=== PATIENT | female | born 1975 | race Hispanic/Latino ===

== ENCOUNTER 2018-06-14 07:25 | Emergency (ER) | payer OTHER ==
[~2018-06-14] VITALS: Ht 162.6 cm; Wt 72.6 kg
[2018-06-14] MEDS ORDERED: HYDROCODONE/APAP 7.5MG-325MG 1 EA TAB PO ONE (08:00)
[2018-06-14] MEDS ORDERED: HYDROCODONE/APAP 7.5MG-325MG 1 EA TAB PO NR (08:00)
[2018-06-14] MEDS ORDERED: ONDANSETRON HCL 4 MG ORAL DISINTEGRATING TAB PO NR (08:00)
--- NOTE | 2018-06-14 09:03 | Diagnostic Imaging Report ---
EXAMINATION: CHEST 2 VIEWS INDICATION: Cough, weakness ^cough, cp ^[id number] ^[id number] COMPARISON: None FINDINGS: PA and lateral views TUBES and LINES: None. LUNGS: Bibasilar subsegmental atelectasis There is no evidence of pneumonia or pulmonary edema. PLEURA: No pleural effusion or pneumothorax. HEART AND MEDIASTINUM: The cardiomediastinal silhouette is unremarkable.. BONES AND SOFT TISSUES: No focal osseous lesions. Soft tissues are unremarkable. UPPER ABDOMEN: No free air under the diaphragm. IMPRESSION: Bibasilar subsegmental atelectasis. Small foci of pneumonia cannot be excluded. Please correlate for signs/symptoms of infection. Signed by: Dr. Javier Sandoval MD on 06/14/2018 9:00 AM
[2018-06-14 10:02] VITALS: BP 93/68
== END 2018-06-14 10:54 | disposition home or self-care (01) ==
LOC: ER 07:25
DX: R50.9 Fever, unspecified (principal); R05 Cough; J11.1 Influenza due to unidentified influenza virus with other respiratory manifestations
CPT/HCPCS: 71046; 81025; 87400; 93005; 99284; Q0162

== ENCOUNTER 2019-10-17 10:41 | Emergency (ER) | payer OTHER ==
[~2019-10-17] VITALS: Ht 162.6 cm; Wt 63.5 kg
[2019-10-17] MEDS ORDERED: SODIUM CHLORIDE 0.9% 1000ML 1,000 ML IV STA (11:29)
[2019-10-17] MEDS ORDERED: MORPHINE SULFATE 2 MG/ML SYR 1ML IV NR (11:30)
[2019-10-17 11:39] LABS: BASOPHILS % 0.2 % (0.0-1.0); EOSINOPHILS % 0.6 % (0.0-6.0); HEMOGLOBIN 14.7 g/dL (12.0-16.0); LYMPHOCYTES # (AUTO) 1.8 (1.0-3.2); LYMPHOCYTES % 37.4 % (18.0-39.1); MEAN CORPUSCULAR HEMOGLOBIN 28.3 pg (28-32); MEAN CORPUSCULAR HGB CONC 33.4 g/dL (31-35); MEAN CORPUSCULAR VOLUME 84.6 fL (81-99); MONOCYTES # (AUTO) 0.3 (0.2-0.8); MONOCYTES % 7.2 % (4.4-11.3); NEUTROPHILS # (AUTO) 2.6 (2.1-6.9); NEUTROPHILS % 54.4 % (38.7-80.0); PLATELET COUNT 154 x10e3/uL (140-360); RED CELL DISTRIBUTION WIDTH 13.9 % (11.7-14.4)
[2019-10-17] MEDS ORDERED: ASPIRIN 81 MG CHEW TAB PO ONE (11:45)
[2019-10-17] MEDS ORDERED: ONDANSETRON HCL INJ 2MG/ML 2ML 2 MG/ML VIAL IV ONE (11:45)
[2019-10-17 11:53] LABS: INR 0.87; PROTHROMBIN TIME 12.3 seconds (11.9-14.5)
[2019-10-17 11:54] LABS: PARTIAL THROMBOPLASTIN TIME 28.6 seconds (23.8-35.5)
[2019-10-17 12:00] LABS: ALANINE AMINOTRANSFERASE 62 IU/L (0-55); ALBUMIN 3.9 g/dL (3.5-5.0); ALKALINE PHOSPHATASE 114 IU/L (40-150); ANION GAP 13.8 mmol/L (8-16); BLOOD UREA NITROGEN 11 mg/dL (7-26); BUN/CREATININE RATIO 14 (6-25); CALCIUM 8.9 mg/dL (8.4-10.2); CARBON DIOXIDE 22 mmol/L (22-29); CHLORIDE 108 mmol/L (98-107); CREATINE KINASE 37 IU/L (29-168); CREATININE, SERUM 0.78 mg/dL (0.57-1.11); EST GLOMERULAR FILTRATION RATE > 60 ML/MIN (60-); GLUCOSE 101 mg/dL (74-118); POTASSIUM 3.8 mmol/L (3.5-5.1); SODIUM 140 mmol/L (136-145)
[2019-10-17] MEDS ORDERED: SODIUM CHLORIDE 0.9% 50ML 50 ML ONE (12:34)
[2019-10-17] MEDS ORDERED: IOPAMIDOL 370 MG/ML 200 ML INFUS..BTL INJ ONE (12:35)
--- NOTE | 2019-10-17 13:39 | Diagnostic Imaging Report ---
EXAM: CT Chest WITH contrast 10/17/2019 12:38 PM INDICATION: PE PROTOCOL, PLEURITIC CP COMPARISON: None TECHNIQUE: Chest was scanned utilizing a multidetector helical scanner from the lung apex through the level of the adrenal glands without administration of IV contrast. Coronal and sagittal reformations were obtained. Pulmonary embolism protocol was performed. IV CONTRAST: 100 mL of Omnipaque 300 COMPLICATIONS: None RADIATION DOSE: Total DLP: 443.73 mGy*cm Estimated effective dose: (DLP x 0.014 x size factor) mSv CTDIvol has been reviewed. It is below the limits set by the Radiation Protocol Committee (RPC). FINDINGS: LINES/ TUBES: None. LUNGS AND AIRWAYS: There is no pulmonary embolism. Multiple bilateral patchy consolidations and nodular opacities (series 3, images 24, 35 and 55) are seen. There are bibasilar opacities which could be due to atelectasis. Airways are normal. PLEURA: The pleural spaces are clear. HEART AND MEDIASTINUM: The thyroid gland is normal. No mediastinal, hilar or axillary lymphadenopathy. The heart is normal in size.. There is no pericardial effusion. UPPER ABDOMEN: There is hepatic steatosis. BONES: Unremarkable. SOFT TISSUES: Unremarkable. IMPRESSION: 1. No pulmonary embolism. 2. Multiple bilateral patchy consolidations and nodular opacities most likely representing multifocal pneumonia. 3. Hepatic steatosis. Signed by: Renan Briggs MD on 10/17/2019 1:36 PM
--- NOTE | 2019-10-17 14:58 | Emergency Department Note ---
History of Present Illnes History of Present Illness Chief Complaint: Chest Pain History of Present Illness This is a 44 year old female c/o cp with inspiration and back pain presents as sob and sweating states its because her chest hurts denies cough. Historian: Patient Arrival Mode: Car Mold Injector Required: No Onset (how long ago): day(s) Radiation: Reports non-radiation Severity: moderate Onset quality: sudden Timing of current episode: constant Progression: waxing and waning Chronicity: new Context: Denies recent illness Relieving factors: none Exacerbating factors: none Associated symptoms: Reports denies other symptoms Treatments prior to arrival: none Past Medical/Family History Physician Review I have reviewed the patient's past medical and family history. Any updates have been documented here. Past Medical History Recent Fever: No Clinical Suspicion of Infectio: No New/Unexplained Change in Ment: No Past Medical History: GERD Past Surgical History: Social History Smoking Cessation: Never Smoker Counseling Performed: No Alcohol Use: None Any Illegal Drug Use: No TB Exposure/Symptoms: No Physically hurt or threatened: No Family History Family history of heart diseas: No Other Last Tetanus: UNKNOWN Any Pre-Existing Lines (PICC,: No Review of Systems Review of Systems Constitutional: Reports no symptoms EENTM: Reports no symptoms Cardiovascular: Reports as per HPI Respiratory: Reports no symptoms Gastrointestinal: Reports no symptoms Genitourinary: Reports no symptoms Musculoskeletal: Reports no symptoms Integumentary: Reports no symptoms Neurological: Reports no symptoms Psychological: Reports no symptoms Endocrine: Reports no symptoms Hematological/Lymphatic: Reports no symptoms Physical Exam Related Data Allergies: Coded Allergies: No Known Allergies (Unverified , 06/14/18) Triage Vital Signs Vital Signs Date Time Temp Pulse Resp B/P (MAP) Pulse Ox O2 Delivery O2 Flow Rate FiO2 10/17/19 11:00 99.4 86 18 111/76 97 Room Air Vital signs reviewed: Yes Physical Exam CONSTITUTIONAL Constitutional: Present well-developed, Present well-nourished HENT HENT: Present normocephalic, Present atraumatic, Present oropharynx clear/moist, Present nose normal HENT L/R: Present left ext ear normal, Present right ext ear normal EYES Eyes: Reports PERRL, Reports conjunctivae normal NECK Neck: Present ROM normal PULMONARY Pulmonary: Present effort normal, Present breath sounds normal CARDIOVASCULAR Cardiovascular: Present regular rhythm, Present heart sounds normal, Present capillary refill normal, Present normal rate GASTROINTESTINAL Abdominal: Present soft, Present nontender, Present bowel sounds normal GENITOURINARY Genitourinary: Present exam deferred SKIN Skin: Present warm, Present dry MUSCULOSKELETAL Musculoskeletal: Present ROM normal NEUROLOGICAL Neurological: Present alert, Present oriented x 3, Present no gross motor or sensory deficits PSYCHOLOGICAL Psychological: Present mood/affect normal, Present judgement normal Results Laboratory Result Diagram: 10/17/19 1110 10/17/19 1110 Laboratory Laboratory Tests Test 10/17/19 11:54 10/17/19 11:11 10/17/19 11:10 Human Chorionic Gonadotropin, Qual Negative (NEGATIVE) White Blood Count 4.73 x10e3/uL (4.8-10.8) Red Blood Count 5.20 x10e6/uL (3.6-5.1) Hemoglobin 14.7 g/dL (12.0-16.0) Hematocrit 44.0 % (34.2-44.1) Mean Corpuscular Volume 84.6 fL (81-99) Mean Corpuscular Hemoglobin 28.3 pg (28-32) Mean Corpuscular Hemoglobin Concent 33.4 g/dL (31-35) Red Cell Distribution Width 13.9 % (11.7-14.4) Platelet Count 154 x10e3/uL (140-360) Neutrophils (%) (Auto) 54.4 % (38.7-80.0) Lymphocytes (%) (Auto) 37.4 % (18.0-39.1) Monocytes (%) (Auto) 7.2 % (4.4-11.3) Eosinophils (%) (Auto) 0.6 % (0.0-6.0) Basophils (%) (Auto) 0.2 % (0.0-1.0) Neutrophils # (Auto) 2.6 (2.1-6.9) Lymphocytes # (Auto) 1.8 (1.0-3.2) Monocytes # (Auto) 0.3 (0.2-0.8) Eosinophils # (Auto) 0.0 (0.0-0.4) Basophils # (Auto) 0.0 (0.0-0.1) Absolute Immature Granulocyte (auto 0.01 x10e3/uL (0-0.1) Prothrombin Time 12.3 seconds (11.9-14.5) Prothromb Time International Ratio 0.87 Activated Partial Thromboplast Time 28.6 seconds (23.8-35.5) Sodium Level 140 mmol/L (136-145) Potassium Level 3.8 mmol/L (3.5-5.1) Chloride Level 108 mmol/L (98-107) Carbon Dioxide Level 22 mmol/L (22-29) Anion Gap 13.8 mmol/L (8-16) Blood Urea Nitrogen 11 mg/dL (7-26) Creatinine 0.78 mg/dL (0.57-1.11) Estimat Glomerular Filtration Rate > 60 ML/MIN (60-) BUN/Creatinine Ratio 14 (6-25) Glucose Level 101 mg/dL (74-118) Calcium Level 8.9 mg/dL (8.4-10.2) Magnesium Level 2.0 MG/DL (1.3-2.1) Total Bilirubin 0.5 mg/dL (0.2-1.2) Aspartate Amino Transf (AST/SGOT) 45 IU/L (5-34) Alanine Aminotransferase (ALT/SGPT) 62 IU/L (0-55) Alkaline Phosphatase 114 IU/L (40-150) Creatine Kinase 37 IU/L (29-168) Creatine Kinase MB 0.20 ng/mL (0-5.0) Troponin I < 0.001 ng/mL (0-0.300) B-Type Natriuretic Peptide < 10.0 pg/mL (0-100) Total Protein 7.9 g/dL (6.5-8.1) Albumin 3.9 g/dL (3.5-5.0) Globulin 4.0 g/dL (2.3-3.5) Albumin/Globulin Ratio 1.0 (0.8-2.0) Lab results reviewed: Yes Laboratory comments Laboratory Tests Test 10/17/19 15:00 10/17/19 11:54 10/17/19 11:11 10/17/19 11:10 Creatine Kinase 31 IU/L (29-168) 37 IU/L (29-168) Creatine Kinase MB 0.10 ng/mL (0-5.0) 0.20 ng/mL (0-5.0) Troponin I < 0.001 ng/mL (0-0.300) < 0.001 ng/mL (0-0.300) Human Chorionic Gonadotropin, Qual Negative (NEGATIVE) White Blood Count 4.73 x10e3/uL (4.8-10.8) Red Blood Count 5.20 x10e6/uL (3.6-5.1) Hemoglobin 14.7 g/dL (12.0-16.0) Hematocrit 44.0 % (34.2-44.1) Mean Corpuscular Volume 84.6 fL (81-99) Mean Corpuscular Hemoglobin 28.3 pg (28-32) Mean Corpuscular Hemoglobin Concent 33.4 g/dL (31-35) Red Cell Distribution Width 13.9 % (11.7-14.4) Platelet Count 154 x10e3/uL (140-360) Neutrophils (%) (Auto) 54.4 % (38.7-80.0) Lymphocytes (%) (Auto) 37.4 % (18.0-39.1) Monocytes (%) (Auto) 7.2 % (4.4-11.3) Eosinophils (%) (Auto) 0.6 % (0.0-6.0) Basophils (%) (Auto) 0.2 % (0.0-1.0) Neutrophils # (Auto) 2.6 (2.1-6.9) Lymphocytes # (Auto) 1.8 (1.0-3.2) Monocytes # (Auto) 0.3 (0.2-0.8) Eosinophils # (Auto) 0.0 (0.0-0.4) Basophils # (Auto) 0.0 (0.0-0.1) Absolute Immature Granulocyte (auto 0.01 x10e3/uL (0-0.1) Prothrombin Time 12.3 seconds (11.9-14.5) Prothromb Time International Ratio 0.87 Activated Partial Thromboplast Time 28.6 seconds (23.8-35.5) Sodium Level 140 mmol/L (136-145) Potassium Level 3.8 mmol/L (3.5-5.1) Chloride Level 108 mmol/L (98-107) Carbon Dioxide Level 22 mmol/L (22-29) Anion Gap 13.8 mmol/L (8-16) Blood Urea Nitrogen 11 mg/dL (7-26) Creatinine 0.78 mg/dL (0.57-1.11) Estimat Glomerular Filtration Rate > 60 ML/MIN (60-) BUN/Creatinine Ratio 14 (6-25) Glucose Level 101 mg/dL (74-118) Calcium Level 8.9 mg/dL (8.4-10.2) Magnesium Level 2.0 MG/DL (1.3-2.1) Total Bilirubin 0.5 mg/dL (0.2-1.2) Aspartate Amino Transf (AST/SGOT) 45 IU/L (5-34) Alanine Aminotransferase (ALT/SGPT) 62 IU/L (0-55) Alkaline Phosphatase 114 IU/L (40-150) Total Protein 7.9 g/dL (6.5-8.1) Albumin 3.9 g/dL (3.5-5.0) Globulin 4.0 g/dL (2.3-3.5) Albumin/Globulin Ratio 1.0 (0.8-2.0) Test 10/17/19 11:00 B-Type Natriuretic Peptide < 10.0 pg/mL (0-100) Imaging Imaging results reviewed: Yes Impressions Procedure: [id number] CT/CT CHEST W Exam Date: 10/17/19 Exam Time: 1238 REPORT STATUS: Signed EXAM: CT Chest WITH contrast 10/17/2019 12:38 PM INDICATION: PE PROTOCOL, PLEURITIC CP COMPARISON: None TECHNIQUE: Chest was scanned utilizing a multidetector helical scanner from the lung apex through the level of the adrenal glands without administration of IV contrast. Coronal and sagittal reformations were obtained. Pulmonary embolism protocol was performed. IV CONTRAST: 100 mL of Omnipaque 300 COMPLICATIONS: None RADIATION DOSE: Total DLP: 443.73 mGy*cm Estimated effective dose: (DLP x 0.014 x size factor) mSv CTDIvol has been reviewed. It is below the limits set by the Radiation Protocol Committee (RPC). FINDINGS: LINES/ TUBES: None. LUNGS AND AIRWAYS: There is no pulmonary embolism. Multiple bilateral patchy consolidations and nodular opacities (series 3, images 24, 35 and 55) are seen. There are bibasilar opacities which could be due to atelectasis. Airways are normal. PLEURA: The pleural spaces are clear. HEART AND MEDIASTINUM: The thyroid gland is normal. No mediastinal, hilar or axillary lymphadenopathy. The heart is normal in size.. There is no pericardial effusion. UPPER ABDOMEN: There is hepatic steatosis. BONES: Unremarkable. SOFT TISSUES: Unremarkable. IMPRESSION: 1. No pulmonary embolism. 2. Multiple bilateral patchy consolidations and nodular opacities most likely representing multifocal pneumonia. 3. Hepatic steatosis. Signed by: Renan Briggs MD on 10/17/2019 1:36 PM Procedures 12 Lead ECG Interpretation ECG Interpretation : ECG: ECG 1 Mold Injector: Interpreted by ED physician Date: Oct 17, 2019 Time: 10:57 Rhythm: sinus rhythm Rate: normal (87) QRS axis: left Conduction: incomplete RBBB ST segments normal: Yes T waves normal: Yes Clinical Impression: abnormal ECG Assessment & Plan Medical Decision Making MDM CBC, CHEM, CARDIACS, ECG, BNP, COVID SWAB, CT CHEST, BLOOD CX - R/O PULM EMBOLI, STEMI/NSTEMI, CHF, ELECTROLYTE ABNL, COVID PNEUMONIA Reassessment Reassessment VSS, O2 SAT NORMAL, CT C/W COVID PNEUMONIA - WILL GET REPEAT CARDIAC ENZYMES AND IF NL, DC HOME - zpack, self-quarantine, proning, f/u pcp, rted prn Assessment & Plan Final Impression: (1) Pneumonia due to COVID-19 virus Depart Disposition: HOME, SELF-CARE Last Vital Signs Date Time Temp Pulse Resp B/P (MAP) Pulse Ox O2 Delivery O2 Flow Rate FiO2 10/17/19 12:31 99.0 74 17 120/72 100 10/17/19 11:00 Room Air Medications in the ED Morphine Sulfate 2 mg ONCE IV Last administered on 10/17/19at 13:01; Admin Dose 2 MG; Start 10/17/19 at 11:30; Stop 10/17/19 at 12:59; Status DC Ondansetron HCl 4 mg ONCE ONCE IV Last administered on 10/17/19at 13:00; Admin Dose 4 MG; Start 10/17/19 at 11:45; Stop 10/17/19 at 11:46; Status DC Sodium Chloride 1,000 ml @ 0 mls/hr Q0M STAT IV Last administered on 10/17/19at 13:00; Admin Dose 999 MLS/HR; Start 10/17/19 at 11:29; Stop 10/17/19 at 11:33; Status DC Aspirin 81 mg NOW ONCE PO Last administered on 10/17/19at 13:00; Admin Dose 81 MG; Start 10/17/19 at 11:45; Stop 10/17/19 at 11:46; Status DC Sodium Chloride 50 ml @ ud STK-MED ONCE .ROUTE ; Start 10/17/19 at 12:34; Stop 10/17/19 at 12:28; Status DC Iopamidol 74,000 mg STK-MED ONCE INJ ; Start 10/17/19 at 12:35; Stop 10/17/19 at 12:29; Status DC SHELDON ALMANZAR MD Oct 17, 2019 14:58
[2019-10-17 15:47] LABS: CREATINE KINASE 31 IU/L (29-168)
== END 2019-10-17 16:35 | disposition home or self-care (01) ==
LOC: ER 10:58
DX: U07.1 COVID-19 (principal); J18.9 Pneumonia, unspecified organism; R06.02 Shortness of breath; K21.9 Gastro-esophageal reflux disease without esophagitis
CPT/HCPCS: 36415; 71260; 80053; 82550; 82553; 83735; 83880; 84484; 84702; 85025; 85610; 85730; 87635; 93005; 99284; J2270; J2405; J7030; Q9967; U0002